=== PATIENT | male | born 2000 | race Caucasian/White ===

== ENCOUNTER 2022-05-04 09:34 | Emergency (ER) | payer OTHER ==
[2022-05-04] MEDS: Sodium Chloride 0.9% 1,000 ML IV ONE (10:28)
[2022-05-04] MEDS: Ondansetron 4 MG/2 ML SDV IVPUSH ONE (10:28)
[2022-05-04] MEDS: Ketorolac 30 MG/ML SDV IVPUSH ONE (10:28)
[2022-05-04 10:53] LABS: ANION GAP 12.4 mEq/L (7-13); CHLORIDE,CL 105 mmol/L (98-107); SODIUM,NA 141 mmol/L (136-145)
[2022-05-04 10:54] LABS: ESTIMATED GFR 94 mL/min (>=60)
[2022-05-04] MEDS: Butorphanol 2 MG/ML SDV IM ONE (11:32)
[2022-05-04] MEDS: Promethazine 25 MG/ML SDV IM ONE (11:32)
[2022-05-04 11:46] LABS: AMPHETAMINES,URINE NEGATIVE (NEGATIVE); BARBITURATES,URINE NEGATIVE (NEGATIVE); BENZODIAZEPINE,URINE NEGATIVE (NEGATIVE); MDMA (ECSTASY), URINE NEGATIVE (NEGATIVE); METHADONE,URINE NEGATIVE (NEGATIVE); METHAMPHETAMINES,URINE NEGATIVE (NEGATIVE); OPIATES,URINE NEGATIVE (NEGATIVE); OXYCODONE,URINE NEGATIVE (NEGATIVE); PHENCYCLIDINE,URINE NEGATIVE (NEGATIVE); TCA,URINE NEGATIVE (NEGATIVE)
== END 2022-05-04 12:05 | disposition home or self-care (01) ==
LOC: DL.ED 09:34
DX: G43.009 Migraine without aura, not intractable, without status migrainosus (principal); Z20.822 Contact with and (suspected) exposure to COVID-19
CPT/HCPCS: 36415; 80053; 80305-QW; 81003; 83735; 85025; 96361; 96372; 96374; 96375; 99282; 99284-25; J0595; J1885; J2405; J2550; J7030; U0002

== ENCOUNTER 2022-05-04 18:30 | Emergency (ER) | payer OTHER ==
[2022-05-04] MEDS ORDERED: Sodium Chloride 0.9% 1,000 ML IV ONE (21:05)
[2022-05-04] MEDS ORDERED: Ketorolac 30 MG/ML SDV IVPUSH ONE (21:05)
== END 2022-05-04 22:36 | disposition home or self-care (01) ==
LOC: DL.ED 18:30
DX: G43.909 Migraine, unspecified, not intractable, without status migrainosus (principal)
CPT/HCPCS: 36415; 70450; 80053; 80305-QW; 81003; 83735; 85025; 86788; 96361; 96374; 99282; 99284-25; J0595; J1885; J2405; J2550; J7030; U0002